=== PATIENT | female | born 1950 | race Caucasian/White ===

== ENCOUNTER 2021-04-28 22:19 | Inpatient (IN) | payer MEDICARE, MEDICAID ==
[~2021-04-28] VITALS: Ht 162.6 cm; Wt 81.2 kg
[2021-04-28] MEDS ORDERED: SODIUM CHLORIDE 0.9% 1,000 ML IV ONE (23:00)
[2021-04-28 23:45] LABS: CHLORIDE 107 mEq/L (98-107)
[2021-04-28 23:56] LABS: BASOPHILS % 0.2 % (0.0-2.0); EOSINOPHILS % 0.2 % (0.0-5.0); HEMATOCRIT. 40.3 % (36.0-48.0); HEMOGLOBIN. 13.8 g/dL (12.0-16.0); LYMPHOCYTES % 8.7 % (20.0-50.0); MEAN CORPUSCULAR HEMOGLOBIN 30.1 pg (28.0-32.0); MEAN CORPUSCULAR VOLUME 87.6 fL (81.0-99.0); MEAN PLATELET VOLUME 7.7 fl (7.4-10.4); MONOCYTES % 3.9 % (2.0-8.0); PLATELET 285 x1000/uL (130-400); RED CELL DISTRIBUTION WIDTH 12.7 % (11.6-14.6)
[2021-04-29] MEDS ORDERED: IOHEXOL-350 100 ML BOTTLE ONE (04:55)
[2021-04-29] MEDS ORDERED: HEPARIN BOLUS PRN aPTT 37-44 IV (05:00)
[2021-04-29] MEDS ORDERED: HEPARIN 80 UNITS/KG BOLUS IV SCH (05:00)
[2021-04-29] MEDS ORDERED: HEPARIN 25,000 UNITS PREMIX 250 ML IV SCH (05:00)
[2021-04-29] MEDS ORDERED: HEPARIN BOLUS PRN aPTT <36 IV (05:00)
[2021-04-29] MEDS ORDERED: CLONIDINE 0.1MG TABLET PO PRN (07:15)
[2021-04-29] MEDS ORDERED: ONDANSETRON HCL 4MG/2ML INJ IV PRN (07:15)
[2021-04-29] MEDS ORDERED: IPRATROPIUM/ALBUTEROL 0.5-3(2.5)MG/3ML NEB NEB PRN (07:15)
[2021-04-29] MEDS ORDERED: ACETAMINOPHEN 325MG TABLET PO PRN ×2 (07:15)
[2021-04-29] MEDS ORDERED: MAGNESIUM/ALUMINUM HYDROXIDE/SIMETHICONE 30ML UDC PO PRN (07:15)
[2021-04-29] MEDS ORDERED: NITROGLYCERIN 0.4MG TABLET SL SL PRN (07:15)
[2021-04-29] MEDS: ASPIRIN 325MG EC TABLET PO SCH (09:07)
[2021-04-29] MEDS: METOPROLOL TARTRATE 25MG TABLET PO SCH ×2 (09:08→21:06)
[2021-04-29] MEDS: FAMOTIDINE 20MG TABLET PO SCH (09:08)
[2021-04-29] MEDS: ENOXAPARIN 60MG/0.6ML SYR SUBCUT SCH ×2 (09:15→21:00)
[2021-04-29 09:50] LABS: INR 1.1; PROTHROMBIN TIME 11.8 sec (9.6-11.0)
[2021-04-29 11:33] LABS: METHADONE URINE SCREEN NEGATIVE (NEGATIVE); OPIATES URINE SCREEN NEGATIVE (NEGATIVE)
[2021-04-29 11:34] LABS: *AMPHETAMINES SCREEN URINE NEGATIVE (NEGATIVE); *BARBITURATES SCREEN URINE NEGATIVE (NEGATIVE); *BENZODIAZEPINES SCREEN URINE NEGATIVE (NEGATIVE); *COCAINE SCREEN URINE NEGATIVE (NEGATIVE); CANNABINOID URINE SCREEN NEGATIVE (NEGATIVE); PHENCYCLIDINE URINE SCREEN NEGATIVE (NEGATIVE)
[2021-04-29 11:37] LABS: CLARITY URINE HAZY (CLEAR); COLOR URINE YELLOW (YELLOW)
[2021-04-29 11:38] LABS: KETONES URINE NEGATIVE (NEGATIVE); NITRITE URINE POSITIVE (NEGATIVE); OCCULT BLOOD URINE 2+ (NEGATIVE); PH URINE 5.5 (4.5-8.0); PROTEIN URINE 2+ (NEGATIVE); SPECIFIC GRAVITY URINE 1.074 (1.005-1.030)
[2021-04-29 11:39] LABS: LEUKOCYTE ESTERASE URINE TRACE (NEGATIVE)
[2021-04-29] MEDS ORDERED: CEFTRIAXONE 1 G PREMIX 50 ML IV SCH (12:30)
[2021-04-29] MEDS ORDERED: AZITHROMYCIN 500 MG in DEXT 5% WATER 250 ML IV SCH (13:00)
[2021-04-29 15:14] LABS: ETHANOL BLOOD < 10 mg/dL
[2021-04-29 15:17] LABS: TOTAL IRON BINDING CAPACITY 240 ug/dL (250-450)
[2021-04-29 15:19] LABS: CREATINE KINASE 249 IU/L (26-192)
[2021-04-29 15:21] LABS: CREATINE KINASE MB FRACTION 3.1 ng/mL (0.5-3.6)
[2021-04-29 15:42] LABS: FOLIC ACID (FOLATE) SERUM 12.4 ng/mL (>5.38)
[2021-04-29 21:30] LABS: BG BASE EXCESS 1.4 mmol/L (-2.0-2.0); BG CARBOXYHEMOGLOBIN 0.6 % (0.5-1.5); BG DEOXYHEMOGLOBIN 6.8 % (0.0-5.0); BG FRACTION INSPIRED OXYGEN 40; BG HCO3 ACT 24.3 mmol/L (22.0-26.0); BG METHEMOGLOBIN 0.3 % (0.0-1.5); BG OXYGEN SATURATION 93.1 % (92.0-98.5); BG OXYHEMOGLOBIN 92.3 % (94.0-97.0); BG PCO2 33.1 mmHg (35.0-45.0); BG PH 7.484 (7.350-7.450); BG SAMPLE SITE RIGHT RADIAL; BG TOTAL HEMOGLOBIN 12.6 g/dL (12.0-18.0); BG VENT MODE MASK - SIMPLE
[2021-04-29 22:41] LABS: CREATINE KINASE 241 IU/L (26-192)
[2021-04-29 22:42] LABS: CREATINE KINASE MB FRACTION 3.8 ng/mL (0.5-3.6)
[2021-04-30] VITALS: BP 137/73
[2021-04-30 04:00] VITALS: BP 119/56
[2021-04-30 05:34] LABS: CHLORIDE 111 mEq/L (98-107)
[2021-04-30 05:41] LABS: PHOSPHORUS 2.6 mg/dL (2.5-4.9)
[2021-04-30 06:02] LABS: BASOPHILS % 0.2 % (0.0-2.0); HEMATOCRIT. 35.3 % (36.0-48.0); HEMOGLOBIN. 12.2 g/dL (12.0-16.0); MEAN CORPUSCULAR HEMOGLOBIN 30.3 pg (28.0-32.0); MEAN CORPUSCULAR VOLUME 87.9 fL (81.0-99.0); MEAN PLATELET VOLUME 7.7 fl (7.4-10.4); MONOCYTES % 4.2 % (2.0-8.0); NEUTROPHILS % 83.6 % (40.0-76.0); PLATELET 243 x1000/uL (130-400); RED BLOOD CELL COUNT 4.02 mill/uL (4.2-5.4); RED CELL DISTRIBUTION WIDTH 12.3 % (11.6-14.6)
[2021-04-30 08:00] VITALS: BP 108/63
[2021-04-30] MEDS: ENOXAPARIN 60MG/0.6ML SYR SUBCUT SCH (11:13)
[2021-04-30] MEDS: METOPROLOL TARTRATE 25MG TABLET PO SCH ×2 (11:19→21:10)
[2021-04-30] MEDS: FAMOTIDINE 20MG TABLET PO SCH (11:19)
[2021-04-30] MEDS: ASPIRIN 325MG EC TABLET PO SCH (11:19)
[2021-04-30 12:00] VITALS: BP 129/57
[2021-04-30] MEDS: CEFTRIAXONE 1,000 MG in DEXTROSE 5% WATER 50 ML IV SCH (14:21)
[2021-04-30 16:00] VITALS: BP 115/75
[2021-04-30] MEDS ORDERED: AZITHROMYCIN 500 MG in DEXT 5% WATER 250 ML IV SCH (16:30)
[2021-04-30 20:00] VITALS: BP 110/63
[2021-04-30] MEDS: ENOXAPARIN 80MG/0.8ML SYR SUBCUT SCH (21:10)
[2021-04-30] MEDS: ZOLPIDEM TARTRATE 5MG TABLET PO PRN (22:32)
[2021-04-30] MEDS: GUAIFENESIN 200MG/10ML SUGAR FREE UDC PO PRN (22:32)
[2021-05-01] VITALS (7 sets, daily range): BP systolic 94–131; BP diastolic 54–81
[2021-05-01] MEDS: FAMOTIDINE 20MG TABLET PO SCH (09:32)
[2021-05-01] MEDS: ASPIRIN 325MG EC TABLET PO SCH (09:32)
[2021-05-01] MEDS: METOPROLOL TARTRATE 25MG TABLET PO SCH ×2 (09:32→20:12)
[2021-05-01] MEDS: AZITHROMYCIN 500 MG TABLET PO SCH (09:32)
[2021-05-01] MEDS: ENOXAPARIN 80MG/0.8ML SYR SUBCUT SCH ×2 (09:33→20:13)
[2021-05-01] MEDS: CEFTRIAXONE 1,000 MG in DEXTROSE 5% WATER 50 ML IV SCH (11:25)
[2021-05-01] MEDS: GUAIFENESIN 200MG/10ML SUGAR FREE UDC PO PRN (20:12)
[2021-05-01] MEDS: ZOLPIDEM TARTRATE 5MG TABLET PO PRN (20:12)
[2021-05-01] MEDS: KETOROLAC 15MG/ML VIAL IV PRN (23:02)
[2021-05-02] VITALS: BP 121/64
[2021-05-02 04:00] VITALS: BP 115/68
[2021-05-02] MEDS: GUAIFENESIN 200MG/10ML SUGAR FREE UDC PO PRN ×2 (06:13→16:43)
[2021-05-02] MEDS: KETOROLAC 15MG/ML VIAL IV PRN ×2 (06:14→16:44)
[2021-05-02 08:00] VITALS: BP 91/57
[2021-05-02] MEDS: FAMOTIDINE 20MG TABLET PO SCH (08:22)
[2021-05-02] MEDS: METOPROLOL TARTRATE 25MG TABLET PO SCH ×2 (08:22→22:06)
[2021-05-02] MEDS: ASPIRIN 325MG EC TABLET PO SCH (08:22)
[2021-05-02] MEDS: ENOXAPARIN 80MG/0.8ML SYR SUBCUT SCH ×2 (08:22→22:06)
[2021-05-02] MEDS: AZITHROMYCIN 500 MG TABLET PO SCH (08:22)
[2021-05-02] MEDS: CEFTRIAXONE 1,000 MG in DEXTROSE 5% WATER 50 ML IV SCH (11:47)
[2021-05-02 12:00] VITALS: BP 109/60
[2021-05-02 16:00] VITALS: BP 129/66
[2021-05-02] MEDS: DOCUSATE SODIUM 100MG CAPSULE PO PRN (16:45)
[2021-05-02 20:00] VITALS: BP 111/69
[2021-05-03] VITALS: BP 116/80
[2021-05-03 03:41] VITALS: BP 119/70
[2021-05-03 08:00] VITALS: BP 100/53
[2021-05-03] MEDS: DOCUSATE SODIUM 100MG CAPSULE PO PRN (09:22)
[2021-05-03] MEDS: GUAIFENESIN 200MG/10ML SUGAR FREE UDC PO PRN ×3 (09:22→21:13)
[2021-05-03] MEDS: ASPIRIN 325MG EC TABLET PO SCH (09:22)
[2021-05-03] MEDS: ENOXAPARIN 80MG/0.8ML SYR SUBCUT SCH ×2 (09:23→20:03)
[2021-05-03] MEDS: FAMOTIDINE 20MG TABLET PO SCH (09:23)
[2021-05-03] MEDS: METOPROLOL TARTRATE 25MG TABLET PO SCH ×2 (09:23→20:03)
[2021-05-03] MEDS: AZITHROMYCIN 500 MG TABLET PO SCH (09:23)
[2021-05-03] MEDS: CEFTRIAXONE 1,000 MG in DEXTROSE 5% WATER 50 ML IV SCH (11:41)
[2021-05-03 12:00] VITALS: BP 107/65
[2021-05-03 16:01] VITALS: BP 103/62
[2021-05-03 20:00] VITALS: BP 115/77
[2021-05-04] VITALS (7 sets, daily range): BP systolic 100–152; BP diastolic 66–83
[2021-05-04] MEDS: METOPROLOL TARTRATE 25MG TABLET PO SCH ×2 (08:11→21:00)
[2021-05-04] MEDS: DOCUSATE SODIUM 100MG CAPSULE PO PRN (08:11)
[2021-05-04] MEDS: ASPIRIN 325MG EC TABLET PO SCH (08:11)
[2021-05-04] MEDS: ENOXAPARIN 80MG/0.8ML SYR SUBCUT SCH (08:12)
[2021-05-04] MEDS: FAMOTIDINE 20MG TABLET PO SCH (08:12)
[2021-05-04] MEDS: GUAIFENESIN 200MG/10ML SUGAR FREE UDC PO PRN ×2 (10:50→17:15)
[2021-05-04] MEDS ORDERED: LACTULOSE 20G/30ML UDC PO SCH (11:10)
[2021-05-04] MEDS ORDERED: LACTULOSE 20G/30ML UDC PO PRN (17:00)
[2021-05-04] MEDS: APIXABAN 5 MG TABLET PO SCH (17:16)
[2021-05-05] VITALS: BP 124/75
[2021-05-05 04:00] VITALS: BP 120/67
[2021-05-05 08:00] VITALS: BP 107/66
[2021-05-05] MEDS: METOPROLOL TARTRATE 25MG TABLET PO SCH ×2 (09:00→21:22)
[2021-05-05] MEDS: ASPIRIN 325MG EC TABLET PO SCH (09:28)
[2021-05-05] MEDS: FAMOTIDINE 20MG TABLET PO SCH (09:28)
[2021-05-05] MEDS: APIXABAN 5 MG TABLET PO SCH ×2 (09:28→16:38)
[2021-05-05 12:00] VITALS: BP 121/78
[2021-05-05 16:00] VITALS: BP 100/59
[2021-05-05] MEDS: GUAIFENESIN 200MG/10ML SUGAR FREE UDC PO PRN ×2 (16:38→20:13)
[2021-05-05 17:26] LABS: BG BASE EXCESS 2.8 mmol/L (-2.0-2.0); BG CARBOXYHEMOGLOBIN 0.5 % (0.5-1.5); BG DEOXYHEMOGLOBIN 10.8 % (0.0-5.0); BG FRACTION INSPIRED OXYGEN 21; BG HCO3 ACT 26.2 mmol/L (22.0-26.0); BG METHEMOGLOBIN 0.3 % (0.0-1.5); BG OXYGEN SATURATION 89.1 % (92.0-98.5); BG OXYHEMOGLOBIN 88.4 % (94.0-97.0); BG PCO2 36.1 mmHg (35.0-45.0); BG PH 7.478 (7.350-7.450); BG PO2 55.5 mmHg (75.0-100.0); BG SAMPLE SITE RIGHT BRACHIAL; BG TOTAL HEMOGLOBIN 12.7 g/dL (12.0-18.0); BG VENT MODE ROOM AIR
[2021-05-05 20:00] VITALS: BP 113/75
[2021-05-06] VITALS: BP 116/76
[2021-05-06] MEDS: GUAIFENESIN 200MG/10ML SUGAR FREE UDC PO PRN ×4 (02:11→22:32)
[2021-05-06 04:00] VITALS: BP 115/76
[2021-05-06 08:00] VITALS: BP 106/75
[2021-05-06] MEDS: ASPIRIN 325MG EC TABLET PO SCH (08:39)
[2021-05-06] MEDS: METOPROLOL TARTRATE 25MG TABLET PO SCH ×2 (08:40→21:00)
[2021-05-06] MEDS: APIXABAN 5 MG TABLET PO SCH ×2 (08:41→17:27)
[2021-05-06] MEDS: FAMOTIDINE 20MG TABLET PO SCH (08:41)
[2021-05-06 12:00] VITALS: BP 104/74
[2021-05-06 16:00] VITALS: BP 111/73
[2021-05-06 20:00] VITALS: BP 112/70
[2021-05-07] VITALS (7 sets, daily range): BP systolic 90–129; BP diastolic 32–72
[2021-05-07] MEDS: GUAIFENESIN 200MG/10ML SUGAR FREE UDC PO PRN ×2 (02:48→06:34)
[2021-05-07 05:20] LABS: BASOPHILS % 0.7 % (0.0-2.0); EOSINOPHILS % 2.1 % (0.0-5.0); HEMATOCRIT. 34.5 % (36.0-48.0); HEMOGLOBIN. 11.8 g/dL (12.0-16.0); LYMPHOCYTES % 10.3 % (20.0-50.0); MEAN CORPUSCULAR HEMOGLOBIN 29.9 pg (28.0-32.0); MEAN CORPUSCULAR VOLUME 87.2 fL (81.0-99.0); MEAN PLATELET VOLUME 7.6 fl (7.4-10.4); NEUTROPHILS % 80.9 % (40.0-76.0); PLATELET 393 x1000/uL (130-400); RED BLOOD CELL COUNT 3.95 mill/uL (4.2-5.4); RED CELL DISTRIBUTION WIDTH 12.7 % (11.6-14.6)
[2021-05-07 06:45] LABS: CHLORIDE 110 mEq/L (98-107)
[2021-05-07] MEDS: METOPROLOL TARTRATE 25MG TABLET PO SCH ×2 (09:00→20:42)
[2021-05-07] MEDS: FAMOTIDINE 20MG TABLET PO SCH (09:38)
[2021-05-07] MEDS: ASPIRIN 325MG EC TABLET PO SCH (09:38)
[2021-05-07] MEDS: APIXABAN 5 MG TABLET PO SCH ×2 (09:38→17:37)
[2021-05-08] VITALS (7 sets, daily range): BP systolic 109–140; BP diastolic 56–77
[2021-05-08] MEDS: GUAIFENESIN 200MG/10ML SUGAR FREE UDC PO PRN (11:11)
[2021-05-08] MEDS: ASPIRIN 325MG EC TABLET PO SCH (11:11)
[2021-05-08] MEDS: APIXABAN 5 MG TABLET PO SCH ×2 (11:11→17:59)
[2021-05-08] MEDS: FAMOTIDINE 20MG TABLET PO SCH (11:11)
[2021-05-08] MEDS: METOPROLOL TARTRATE 25MG TABLET PO SCH ×2 (11:12→21:11)
[2021-05-09] VITALS: BP 139/78
[2021-05-09 01:55] LABS: BG BASE EXCESS 1.3 mmol/L (-2.0-2.0); BG CARBOXYHEMOGLOBIN 0.2 % (0.5-1.5); BG DEOXYHEMOGLOBIN 10.9 % (0.0-5.0); BG FRACTION INSPIRED OXYGEN 21; BG HCO3 ACT 24.8 mmol/L (22.0-26.0); BG METHEMOGLOBIN 0.3 % (0.0-1.5); BG OXYHEMOGLOBIN 88.6 % (94.0-97.0); BG PCO2 35.7 mmHg (35.0-45.0); BG SAMPLE SITE RIGHT BRACHIAL; BG TOTAL HEMOGLOBIN 12.3 g/dL (12.0-18.0); BG VENT MODE ROOM AIR
[2021-05-09 04:00] VITALS: BP 109/73
[2021-05-09 08:00] VITALS: BP 134/83
[2021-05-09] MEDS: APIXABAN 5 MG TABLET PO SCH (08:43)
[2021-05-09] MEDS: ASPIRIN 325MG EC TABLET PO SCH (08:44)
[2021-05-09] MEDS: FAMOTIDINE 20MG TABLET PO SCH (08:44)
[2021-05-09] MEDS: METOPROLOL TARTRATE 25MG TABLET PO SCH (08:44)
[2021-05-09 09:53] VITALS: BP 107/60
[2021-05-11] MEDS ORDERED: APIXABAN 5 MG TABLET PO SCH (17:00)
== END 2021-05-09 16:08 | disposition home or self-care (01) | DRG 871 ==
LOC: ER 22:19 → 5EST 04-29 04:42 → EDBEDREQTM 04-29 04:49 → EDBEDREQ 04-29 04:49 → EDBEDREQSVC 04-29 04:49 → SUPCPDRO 04-29 07:15 → EDBEDREQSVC 04-29 09:00 → ENRESERV 04-29 21:07
PROVIDERS: ADMIT Internal Medicine; ATTEND Internal Medicine
DX: A41.9 Sepsis, unspecified organism (principal); G92.8 Other toxic encephalopathy; I26.99 Other pulmonary embolism without acute cor pulmonale; J18.9 Pneumonia, unspecified organism; J96.01 Acute respiratory failure with hypoxia; I82.402 Acute embolism and thrombosis of unspecified deep veins of left lower extremity; E44.0 Moderate protein-calorie malnutrition; I50.32 Chronic diastolic (congestive) heart failure; R65.20 Severe sepsis without septic shock; E78.00 Pure hypercholesterolemia, unspecified; E78.5 Hyperlipidemia, unspecified; E83.52 Hypercalcemia; Z20.822 Contact with and (suspected) exposure to COVID-19; K44.9 Diaphragmatic hernia without obstruction or gangrene; R74.01 Elevation of levels of liver transaminase levels; I11.0 Hypertensive heart disease with heart failure; Z68.30 Body mass index [BMI] 30.0-30.9, adult; Z86.16 Personal history of COVID-19; Z28.3 Underimmunization status
CPT/HCPCS: 36415; 36600; 71045; 71275; 80048; 80053; 80305; 80320; 81003; 82375; 82550; 82553; 82607; 82746; 82805; 82962; 83036; 83540; 83550; 83605; 83735; 83880; 84100; 84145; 84443; 84484; 85025; 85379; 87426; 93005; 93306; 93970; 94618; 97116; 97162; 97166; 97530; 97535; 99291; J0456; J0696; J1644; J1650; J1885; J2405; J7030; J7060; Q9967; G0480